=== PATIENT | male | born 1985 | race Two or more races ===

== ENCOUNTER 2019-11-13 10:44 | Emergency (ER) | payer OTHER ==
[~2019-11-13] VITALS: Ht 177.8 cm; Wt 90.7 kg
[2019-11-13] MEDS ORDERED: KETOROLAC TROMETHAMINE 15 MG/ML VIAL ONE (10:59)
[2019-11-13] MEDS: KETOROLAC TROMETHAMINE INJ 60 MG/2 ML VIAL IM ONE (11:00)
--- NOTE | 2019-11-13 11:07 | NUR ---
[employer] Escorted by Officer Ramon [id number] In custody OK to Book/Back pain. Hx of Back pain-rods in the back. On room air, breathing evenly and unlabored. connected to the monitor and pulse ox. kept comfortable, will continue to monitor accordingly.
--- NOTE | 2019-11-13 11:45 | NUR ---
Patient discharged in custody of [employer] officer in stable condition. Written and verbal after care instructions given. Patient and officers verbalizes understanding of instruction.
[2019-11-13 11:46] VITALS: BP 122/79
== END 2019-11-13 11:46 ==
LOC: ER 10:49
DX: M54.5 Low back pain (principal); G89.29 Other chronic pain; Z98.890 Other specified postprocedural states
CPT/HCPCS: 96372; 99283; J1885